=== PATIENT | female | born 1945 | race Caucasian/White ===

== ENCOUNTER → 2016-11-12 | Outpatient (CLI) | payer OTHER ==
[~2016-11-12] MED LIST: ALBUAER19 INH; ASTN; COEN150C PO; GLC/500 PO; MONT1TAB3 PO; NITR0.4S UT; OMEG10002 PO; PRAV20TA2 PO
[2016-11-12 13:23] LABS: BASO % 0.6 %; BASO ABS # 0.07 K/uL (0-0.2); COMPLETE YES; EOS % 6.2 %; HEMATOCRIT 42.6 % (37-47); IG% 0.3 %; LYMPH % 24.5 %; LYMPH ABS # 2.82 K/uL (1.2-3.4); MEAN CELL VOLUME 92.4 fL (80-100); MEAN CORPUSCULAR HEMOGLOBIN 31.2 pg (25-34); MEAN CORPUSCULAR HGB CONC 33.8 g/dl (32-36); MEAN PLATELET VOLUME 10.4 fL (7.4-10.4); MONO % 6.1 %; NEUT % 62.3 %; PLATELET COUNT 305 K/uL (130-400); RED BLOOD COUNT 4.61 M/uL (4.2-5.4); WHITE BLOOD COUNT 11.49 K/uL (4.8-10.8)
[2016-11-12 13:49] LABS: ESTIMATED AVERAGE GLUCOSE 146 mg/dl; HA1C FLAG Normal (Normal)
[2016-11-12 14:16] LABS: BLOOD UREA NITROGEN 13 mg/dl (7-18); BUN/CREATININE RATIO 13.6 (10-20); CALCIUM 9.4 mg/dl (8.5-10.1); CARBON DIOXIDE 30 mmol/L (21-32); CHLORIDE 104 mmol/L (98-107); CREATININE 0.99 mg/dl (0.60-1.20); GLUCOSE 142 mg/dl (70-99); PHOSPHORUS 3.6 mg/dl (2.5-4.9); POTASSIUM 4.3 mmol/L (3.5-5.1); SODIUM 141 mmol/L (136-145)
== END | disposition home or self-care (01) ==
LOC: C.LABMFLN 10:04
PROVIDERS: ATTEND Family Medicine
DX: E11.9 Type 2 diabetes mellitus without complications (principal)

== ENCOUNTER → 2017-05-23 | Outpatient (CLI) | payer OTHER ==
[2017-05-23 13:19] LABS: BASO % 0.6 %; BASO ABS # 0.06 K/uL (0-0.2); COMPLETE YES; EOS % 9.4 %; HEMATOCRIT 44.7 % (37-47); IG% 0.3 %; LYMPH % 28.6 %; LYMPH ABS # 3.03 K/uL (1.2-3.4); MEAN CELL VOLUME 94.1 fL (80-100); MEAN CORPUSCULAR HEMOGLOBIN 30.7 pg (25-34); MEAN CORPUSCULAR HGB CONC 32.7 g/dl (32-36); MEAN PLATELET VOLUME 10.5 fL (7.4-10.4); MONO % 6.9 %; NEUT % 54.2 %; PLATELET COUNT 305 K/uL (130-400); RED BLOOD COUNT 4.75 M/uL (4.2-5.4); WHITE BLOOD COUNT 10.59 K/uL (4.8-10.8)
[2017-05-23 13:53] LABS: ALT/SGPT 26 U/L (12-78); BLOOD UREA NITROGEN 13 mg/dl (7-18); BUN/CREATININE RATIO 11.5 (10-20); CALCIUM 9.7 mg/dl (8.5-10.1); CARBON DIOXIDE 30 mmol/L (21-32); CHLORIDE 102 mmol/L (98-107); CHOLESTEROL 133 mg/dl (0-200); ESTIMATED AVERAGE GLUCOSE 148 mg/dl; GLUCOSE 117 mg/dl (70-99); HA1C FLAG Normal (Normal); POTASSIUM 3.8 mmol/L (3.5-5.1); SODIUM 138 mmol/L (136-145); TRIGLYCERIDES 229 mg/dl (0-150); VERY LOW DENSITY LIPOPROT CALC 46 mg/dl
[2017-05-23 13:56] LABS: ALKALINE PHOSPHATASE 67 U/L (45-117); AST/SGOT 23 U/L (15-37); HDL CHOLESTEROL 44 mg/dl; LDL CHOLESTEROL CALCULATED 43 mg/dl
[2017-05-23 14:28] LABS: RATIO 8.4 mcg/mg (0-30.0)
== END | disposition home or self-care (01) ==
LOC: C.LABMFLN 07:19
PROVIDERS: ATTEND Family Medicine
DX: E11.9 Type 2 diabetes mellitus without complications (principal); I10 Essential (primary) hypertension; E78.5 Hyperlipidemia, unspecified

== ENCOUNTER → 2017-12-23 | Outpatient (CLI) | payer OTHER ==
[2017-12-23 13:11] LABS: ALBUMIN 3.9 gm/dl (3.4-5.0); BLOOD UREA NITROGEN 19 mg/dl (7-18); CALCIUM 9.5 mg/dl (8.5-10.1); CARBON DIOXIDE 29 mmol/L (21-32); CREATININE 1.12 mg/dl (0.60-1.20); GLUCOSE 143 mg/dl (70-99); PHOSPHORUS 3.4 mg/dl (2.5-4.9); POTASSIUM 4.1 mmol/L (3.5-5.1); SODIUM 139 mmol/L (136-145)
[2017-12-23 13:14] LABS: HEMOGLOBIN A1C 6.7 % (4.5-5.6)
== END | disposition home or self-care (01) ==
LOC: C.LABMFLN 08:39
PROVIDERS: ATTEND Family Medicine
DX: E11.9 Type 2 diabetes mellitus without complications (principal)